=== PATIENT | female | born 1940 | race Caucasian/White ===

== ENCOUNTER 2023-02-03 10:41 | Emergency (ER) | payer OTHER ==
[2023-02-03 10:50] VITALS: RESP 18; BMI 24.1
[2023-02-03] MEDS ORDERED: ACETAMINOPHEN 1000 MG/100 ML BAG IVPB ONE (12:08)
[2023-02-03] MEDS ORDERED: ACETAMINOPHEN INJECTION 100 ML IVPB ONE (12:12)
[2023-02-03 12:36] LABS: BASO % 0.5 % (0-2.0); EOS % 0.1 % (0-4.5); HEMATOCRIT 43.5 % (32.4-45.2); HEMOGLOBIN 14.3 GM/dL (10.7-15.3); LYMPH % 31.4 % (8-40); MCH 29.6 pg (25.7-33.7); MCHC 32.9 g/dl (32.0-36.0); MEAN PLT VOLUME 7.5 fl (7.5-11.1); MONO % 9.3 % (3.8-10.2); NEUT % 58.7 % (42.8-82.8); PLATELET COUNT 375 10^3/uL (134-434); RBC 4.84 M/mm3 (3.60-5.2); RDW 13.4 % (11.6-15.6); WHITE BLOOD COUNT 6.5 K/mm3 (4.0-10.0)
[2023-02-03 12:42] LABS: INR 1.04 (0.83-1.09); PROTHROMBIN TIME (PATIENT) 12.1 SEC (9.7-13.0)
[2023-02-03 12:45] LABS: ACTIVATED PTT 38.8 SECONDS (25.2-36.5)
[2023-02-03 12:46] LABS: EPI CELLS 13 /uL (0-25.1); HYALINE CASTS 0 /uL (0-3.1); PH,URINE 6.5 (5.0-8.0); URINE APPEARANCE CLEAR; URINE BACTERIA 70 /uL (0-1359); URINE BILIRUBIN NEGATIVE (NEGATIVE); URINE COLOR YELLOW; URINE GLUCOSE (UA) NEGATIVE (NEGATIVE); URINE KETONE NEGATIVE (NEGATIVE); URINE LEUK ESTERASE NEGATIVE (NEGATIVE); URINE NITRITE NEGATIVE (NEGATIVE); URINE PROTEIN NEGATIVE (NEGATIVE); URINE RBC 7 /uL (0-23.9); URINE UROBILINOGEN 0.2 mg/dL (0.2-1.0); URINE WBC 12 /uL (0-25.8)
[2023-02-03 12:54] LABS: POTASSIUM 3.9 mmol/L (3.5-5.1)
[2023-02-03 12:55] LABS: CALCIUM 9.3 mg/dL (8.5-10.1)
[2023-02-03 12:56] LABS: ALBUMIN 4.1 g/dl (3.4-5.0); BLOOD UREA NITROGEN 14.4 mg/dL (7-18)
[2023-02-03 12:59] LABS: CREATININE 0.7 mg/dL (0.55-1.3)
[2023-02-03 13:00] LABS: TOT PROT 7.7 g/dl (6.4-8.2)
[2023-02-03] MEDS ORDERED: FAMOTIDINE 20 MG/50 ML IVPB 20 MG/50 ML MG IVPB ONE (14:42)
[2023-02-03] MEDS ORDERED: SODIUM CHLORIDE 0.9% 500 ML INFUS.BAG IV ONE (14:42)
[2023-02-03] MEDS ORDERED: KETOROLAC TROMETHAMINE 15 MG/ML VIAL IVPUSH ONE (14:59)
[2023-02-03] MEDS ORDERED: KETOROLAC TROMETHAMINE 15 MG/ML VIAL ONE (15:09)
[2023-02-03] MEDS ORDERED: FAMOTIDINE 10 MG/ML VIAL IVPB ONE (15:09)
[2023-02-03 18:15] VITALS: BP 121/49; PULSE 60; TEMP 97.5
== END 2023-02-03 18:30 | disposition home or self-care (01) ==
LOC: JER 10:41
PROC: 3E033GC Introduction of Other Therapeutic Substance into Peripheral Vein, Percutaneous Approach (ICD-10-PCS; principal; 2023-02-03)
PROC: 3E033NZ Introduction of Analgesics, Hypnotics, Sedatives into Peripheral Vein, Percutaneous Approach (ICD-10-PCS; 2023-02-03)
PROC: 3E0333Z Introduction of Anti-inflammatory into Peripheral Vein, Percutaneous Approach (ICD-10-PCS; 2023-02-03)
DX: R10.31 Right lower quadrant pain (principal)
CPT/HCPCS: 36415; 74177-TC; 80053; 81003; 83605; 83690; 84484; 85025; 85610; 85730; 86850; 86900; 86901; 87086; 96365; 96375; 99285-25; Q9967

== ENCOUNTER 2023-03-13 12:30 | Emergency (ER) | payer OTHER ==
[2023-03-13 13:34] VITALS: BP 117/65; PULSE 101; RESP 18; TEMP 99.4; BMI 22.9
[2023-03-13] MEDS ORDERED: DEXAMETHASONE 4 MG TABLET (FP) PO ONE (15:09)
[2023-03-13] MEDS ORDERED: LIDOCAINE VISCOUS 2% ORAL/TOP 15 ML UNIT-DOSE CUP MM ONE (15:10)
[2023-03-13] MEDS ORDERED: DEXAMETHASONE 4 MG TABLET (FP) ONE (15:39)
[2023-03-13] MEDS ORDERED: LIDOCAINE VISCOUS 2% ORAL/TOP 15 ML UNIT-DOSE CUP ONE (15:40)
== END 2023-03-13 16:10 | disposition home or self-care (01) ==
LOC: JER 12:30
DX: R06.02 Shortness of breath (principal); U07.1 COVID-19; J02.9 Acute pharyngitis, unspecified
CPT/HCPCS: 87651; 99283-25

== ENCOUNTER 2024-09-15 09:29 | Emergency (ER) | payer OTHER ==
[2024-09-15 09:36] VITALS: RESP 16; TEMP 98.1; BMI 19.6
[2024-09-15] MEDS ORDERED: ACETAMINOPHEN 325 MG TABLET (FP) ONE (10:08)
[2024-09-15] MEDS: ACETAMINOPHEN 500 MG TABLET (FP) PO ONE (10:10)
[2024-09-15 14:31] VITALS: BP 135/52; PULSE 68
== END 2024-09-15 14:31 | disposition home or self-care (01) ==
LOC: JER 09:29
DX: S00.83XA Contusion of other part of head, initial encounter (principal); W01.198A Fall on same level from slipping, tripping and stumbling with subsequent striking against other object, initial encounter
CPT/HCPCS: 70450-TC; 71046-TC-FY; 72125-TC; 72170-TC-FY; 73562-TC-LT-FY; 99284-25